=== PATIENT | female | born 1950 | race American Indian/Alaskan Native ===

== ENCOUNTER 2019-07-12 16:03 | Outpatient (CLI) | payer OTHER ==
[2019-07-16 18:09] LABS: Vitamin D, 25-OH, D2 <4 ng/mL
== END 2019-07-12 16:04 | disposition home or self-care (01) ==
LOC: LAB 16:03
PROVIDERS: ATTEND Specialist
DX: G62.9 Polyneuropathy, unspecified (principal); G65.1 Sequelae of other inflammatory polyneuropathy; M51.27 Other intervertebral disc displacement, lumbosacral region; M54.17 Radiculopathy, lumbosacral region
CPT/HCPCS: 36415; 82306; 82607; 83036; 83921; 86334